=== PATIENT | female | born 1975 | race African-American/Black ===

== ENCOUNTER 2019-02-08 09:23 | Inpatient (IN) | payer OTHER, MEDICAID ==
[2019-02-08] MEDS: ONDANSETRON 4 MG INJ IV ×2 (10:37→13:21)
[2019-02-08] MEDS: SOD CHLORIDE 0.9% 1,000 ML IV (10:37)
[2019-02-08] MEDS ORDERED: morphine 4 MG/ML VIAL (10:41)
[2019-02-08] MEDS: morphine 4 MG/ML VIAL IV (10:43)
[2019-02-08 10:59] LABS: ADD MAN DIFF? NO
[2019-02-08 11:07] LABS: BASOPHIL # 0.1 10^3/ul (0.0-0.1); BASOPHILS % 0.5 % (0.0-2.0); HEMATOCRIT 41.8 % (37.0-47.0); HEMOGLOBIN 13.4 g/dl (12.0-16.0); LYMPHOCYTES # 0.7 10^3/ul (0.8-2.9); LYMPHOCYTES % 6.3 % (15.0-51.0); MEAN CORPUSCULAR HEMOGLOBIN 28.5 pg (29.0-33.0); MEAN CORPUSCULAR HGB CONC 32.1 g/dl (32.0-37.0); MEAN CORPUSCULAR VOLUME 88.7 fl (82.0-101.0); MEAN PLATELET VOLUME 11.6 fl (7.4-10.4); MONOCYTE # 0.2 10^3/ul (0.3-0.9); MONOCYTES % 1.6 % (0.0-11.0); NEUTROPHIL # 9.8 10^3/ul (1.6-7.5); NEUTROPHILS % 91.1 % (39.0-77.0); PLATELET COUNT 251 10^3/UL (140-415); RED BLOOD COUNT 4.71 10^6/ul (4.20-5.40); RED CELL DISTRIBUTION WIDTH 15.2 % (11.5-14.5)
[2019-02-08 11:07] LABS: WHITE BLOOD COUNT 10.7 10^3/ul (4.8-10.8)
[2019-02-08 11:25] LABS: ALANINE AMINOTRANSFERASE 36 IU/L (13-69); ALBUMIN 4.5 g/dl (3.3-4.9); ALBUMIN/GLOBULIN RATIO 1.15; ALKALINE PHOSPHATASE 116 IU/L (42-121); ANION GAP 10 (5-13); ASPARTATE AMINO TRANSFERASE 25 IU/L (15-46); BILIRUBIN,INDIRECT 0.6 mg/dl (0-1.1); BILIRUBIN,TOTAL 0.6 mg/dl (0.2-1.3); BLOOD UREA NITROGEN 13 mg/dl (7-20); CARBON DIOXIDE 28 mmol/L (21-31); CHLORIDE 105 mmol/L (97-110); CREATININE 0.95 mg/dl (0.44-1.00); Estimated GFR > 60 mL/min (>60); GLUCOSE 114 mg/dl (70-220); LIPASE 28 U/L (23-300); POTASSIUM 3.4 mmol/L (3.5-5.1); SODIUM 143 mmol/L (135-144); TOTAL PROTEIN 8.4 g/dl (6.1-8.1)
[2019-02-08] MEDS: AMLODIPINE 10 MG TAB PO (13:58)
[2019-02-08] MEDS: hydrALAzine 20 MG INJ IV (15:58)
[2019-02-08] MEDS: ENALAPRILAT 1.25 MG INJ IV (17:51)
[2019-02-08] MEDS: ASPIRIN 81 MG TAB PO (18:23)
[2019-02-08] MEDS: LORAZEPAM 2 MG INJ IV (18:24)
[2019-02-08 18:49] LABS: TROPONIN-I 0.029 ng/ml (0.000-0.120)
[2019-02-08 18:49] LABS: B-TYPE NATRIURETIC PEPTIDE 6070 PG/ML (0-125)
[2019-02-08] MEDS ORDERED: ONDANSETRON 4 MG INJ IV (19:00)
[2019-02-08] MEDS ORDERED: METOCLOPRAMIDE 10 MG INJ IV (19:00)
[2019-02-08] MEDS ORDERED: NITROGLYCERIN (SL) 0.4 MG TAB SL (19:00)
[2019-02-08] MEDS ORDERED: ACETAMINOPHEN 325 MG TAB PO (19:00)
[2019-02-08] MEDS ORDERED: NACL 0.9% 3 ML SYG IV (19:00)
[2019-02-08] MEDS ORDERED: ALBUTEROL/IPRATROPIUM (NEB) 3 ML AMP HHN (19:00)
[2019-02-08] MEDS ORDERED: LORAZEPAM 2 MG INJ IV (19:00)
[2019-02-08 19:30] LABS: FREE T4 (FREE THYROXINE) 1.05 ng/dl (0.64-1.79)
[2019-02-08] MEDS ORDERED: ONDANSETRON INJ 8 MG in SOD CHLORIDE 0.9% 50 ML IV (19:30)
[2019-02-09 06:50] LABS: ADD MAN DIFF? NO
[2019-02-09 06:54] LABS: BASOPHIL # 0.1 10^3/ul (0.0-0.1); BASOPHILS % 0.5 % (0.0-2.0); EOSINOPHILS % 0.3 % (0.0-7.0); HEMATOCRIT 41.5 % (37.0-47.0); HEMOGLOBIN 13.5 g/dl (12.0-16.0); LYMPHOCYTES # 1.2 10^3/ul (0.8-2.9); LYMPHOCYTES % 9.6 % (15.0-51.0); MEAN CORPUSCULAR HEMOGLOBIN 29.1 pg (29.0-33.0); MEAN CORPUSCULAR HGB CONC 32.5 g/dl (32.0-37.0); MEAN CORPUSCULAR VOLUME 89.4 fl (82.0-101.0); MEAN PLATELET VOLUME 11.8 fl (7.4-10.4); MONOCYTE # 0.7 10^3/ul (0.3-0.9); NEUTROPHIL # 10.9 10^3/ul (1.6-7.5); NEUTROPHILS % 84.3 % (39.0-77.0); PLATELET COUNT 239 10^3/UL (140-415); RED BLOOD COUNT 4.64 10^6/ul (4.20-5.40); RED CELL DISTRIBUTION WIDTH 15.7 % (11.5-14.5)
[2019-02-09 07:20] LABS: ANION GAP 8 (5-13); BLOOD UREA NITROGEN 16 mg/dl (7-20); CALCIUM 9.2 mg/dl (8.4-10.2); CARBON DIOXIDE 26 mmol/L (21-31); CHLORIDE 105 mmol/L (97-110); CREATININE 0.91 mg/dl (0.44-1.00); Estimated GFR > 60 mL/min (>60); GLUCOSE 89 mg/dl (70-220); PHOSPHORUS 3.3 mg/dl (2.5-4.9); POTASSIUM 3.5 mmol/L (3.5-5.1); SODIUM 139 mmol/L (135-144)
[2019-02-09 07:20] LABS: HEMOGLOBIN A1C 5.4 % (0-5.9)
[2019-02-09 07:22] LABS: CHOLESTEROL 168 mg/dl (100-200)
[2019-02-09 07:22] LABS: CHOL/HDL RATIO 3.1 RATIO; HDL CHOLESTEROL 54 mg/dl (34-88); LDL CHOLESTEROL,CALCULATED 96 mg/dl; TRIGLYCERIDES 91 mg/dl (0-149)
[2019-02-09 07:50] LABS: THYROID STIMULATING HORMONE 0.782 MIU/L (0.465-4.680)
[2019-02-09] MEDS: ASPIRIN (EC) 325 MG TAB PO (08:13)
[2019-02-09] MEDS: HYDROCHLOROTHIAZIDE 25 MG TAB PO (08:13)
[2019-02-09] MEDS: FAMOTIDINE 20 MG INJ IV (08:13)
[2019-02-09] MEDS: HYDROCODONE/APAP (5/325) TAB PO ×3 (08:17→23:03)
[2019-02-09] MEDS ORDERED: AMLODIPINE 10 MG TAB PO (09:00)
[2019-02-09] MEDS: hydrALAzine 20 MG INJ IV ×2 (11:43→20:08)
[2019-02-09 12:59] LABS: TROPONIN-I 0.046 ng/ml (0.000-0.120)
[2019-02-09] MEDS: morphine 2 MG INJ IV (13:07)
[2019-02-09 13:55] LABS: ADD UMIC YES; UR ASCORBIC ACID NEGATIVE (NEGATIVE); UR BACTERIA FEW /HPF (NONE SEEN); UR BILIRUBIN (Dip) NEGATIVE (NEGATIVE); UR BLOOD (Dip) 1+ mg/dL (NEGATIVE); UR CLARITY CLOUDY (CLEAR); UR COLOR YELLOW (YELLOW); UR GLUCOSE (Dip) NEGATIVE (NEGATIVE); UR KETONES (Dip) NEGATIVE (NEGATIVE); UR LEUKOCYTE ESTERASE (Dip) 2+ Leu/ul (NEGATIVE); UR MUCUS FEW /HPF (NONE SEEN); UR NITRITE (Dip) NEGATIVE (NEGATIVE); UR RBC 6 /HPF (0-5); UR SPECIFIC GRAVITY (Dip) 1.019 (1.003-1.030); UR SQUAMOUS EPITHELIAL CELL FEW /HPF (FEW); UR TOTAL PROTEIN (Dip) NEGATIVE (NEGATIVE); UR UROBILINOGEN (Dip) NEGATIVE (NEGATIVE); UR WBC 96 /HPF (0-5)
[2019-02-09 14:08] LABS: BARBITURATES Negative (NEGATIVE); BENZODIAZEPINES Negative (NEGATIVE); COCAINE Negative (NEGATIVE)
[2019-02-09 14:29] LABS: AMPHETAMINE/METHAMPHETAMINE POSITIVE (NEGATIVE); CANNABINOIDS Positive (NEGATIVE); OPIATES Positive (NEGATIVE)
[2019-02-09] MEDS: SPIRONOLACTONE 25 MG TAB PO (15:43)
[2019-02-09 18:14] LABS: TROPONIN-I 0.034 ng/ml (0.000-0.120)
[2019-02-10] MEDS: morphine 2 MG INJ IV ×3 (04:38→21:29)
[2019-02-10] MEDS: SPIRONOLACTONE 25 MG TAB PO (05:26)
[2019-02-10 08:17] LABS: ADD MAN DIFF? NO
[2019-02-10] MEDS: FAMOTIDINE 20 MG INJ IV (08:19)
[2019-02-10] MEDS: HYDROCHLOROTHIAZIDE 25 MG TAB PO (08:19)
[2019-02-10] MEDS: ASPIRIN (EC) 325 MG TAB PO (08:19)
[2019-02-10 08:23] LABS: BASOPHIL # 0.1 10^3/ul (0.0-0.1); BASOPHILS % 0.7 % (0.0-2.0); EOSINOPHILS # 0.1 10^3/ul (0.0-0.5); EOSINOPHILS % 1.6 % (0.0-7.0); HEMATOCRIT 40.7 % (37.0-47.0); HEMOGLOBIN 13.5 g/dl (12.0-16.0); LYMPHOCYTES # 1.8 10^3/ul (0.8-2.9); LYMPHOCYTES % 19.9 % (15.0-51.0); MEAN CORPUSCULAR HEMOGLOBIN 29.2 pg (29.0-33.0); MEAN CORPUSCULAR HGB CONC 33.2 g/dl (32.0-37.0); MEAN CORPUSCULAR VOLUME 87.9 fl (82.0-101.0); MEAN PLATELET VOLUME 11.8 fl (7.4-10.4); MONOCYTE # 0.7 10^3/ul (0.3-0.9); NEUTROPHIL # 6.2 10^3/ul (1.6-7.5); NEUTROPHILS % 69.6 % (39.0-77.0); PLATELET COUNT 194 10^3/UL (140-415); RED BLOOD COUNT 4.63 10^6/ul (4.20-5.40); RED CELL DISTRIBUTION WIDTH 15.2 % (11.5-14.5)
[2019-02-10] MEDS: HYDROCODONE/APAP (5/325) TAB PO ×3 (08:29→23:19)
[2019-02-10 08:48] LABS: ANION GAP 7 (5-13); BLOOD UREA NITROGEN 23 mg/dl (7-20); CALCIUM 8.5 mg/dl (8.4-10.2); CARBON DIOXIDE 28 mmol/L (21-31); CHLORIDE 102 mmol/L (97-110); CREATININE 0.97 mg/dl (0.44-1.00); Estimated GFR > 60 mL/min (>60); GLUCOSE 103 mg/dl (70-220); SODIUM 137 mmol/L (135-144)
[2019-02-10 09:03] LABS: POTASSIUM 3.4 mmol/L (3.5-5.1)
[2019-02-10] MEDS: ENALAPRILAT 1.25 MG INJ IV (17:11)
[2019-02-10] MEDS: AZTREONAM 1 GM/NS (PMX) 50 ML IVPB (17:45)
[2019-02-10] MEDS ORDERED: AZTREONAM 1 GM in SOD CHLORIDE 0.9% 100 ML IVPB (18:30)
[2019-02-11] MEDS: DOCUSATE SODIUM 100 MG CAP PO (03:20)
[2019-02-11] MEDS: SPIRONOLACTONE 50 MG TAB PO (05:30)
[2019-02-11] MEDS: morphine 2 MG INJ IV (05:33)
[2019-02-11 07:12] LABS: ADD MAN DIFF? NO
[2019-02-11 07:13] LABS: WHITE BLOOD COUNT 6.9 10^3/ul (4.8-10.8)
[2019-02-11 07:13] LABS: BASOPHIL # 0.1 10^3/ul (0.0-0.1); BASOPHILS % 0.7 % (0.0-2.0); EOSINOPHILS # 0.2 10^3/ul (0.0-0.5); EOSINOPHILS % 2.8 % (0.0-7.0); HEMATOCRIT 39.4 % (37.0-47.0); HEMOGLOBIN 12.6 g/dl (12.0-16.0); LYMPHOCYTES # 1.3 10^3/ul (0.8-2.9); LYMPHOCYTES % 19.3 % (15.0-51.0); MEAN CORPUSCULAR VOLUME 90.8 fl (82.0-101.0); MEAN PLATELET VOLUME 11.8 fl (7.4-10.4); MONOCYTE # 0.6 10^3/ul (0.3-0.9); MONOCYTES % 8.2 % (0.0-11.0); NEUTROPHIL # 4.7 10^3/ul (1.6-7.5); NEUTROPHILS % 68.7 % (39.0-77.0); PLATELET COUNT 206 10^3/UL (140-415); RED BLOOD COUNT 4.34 10^6/ul (4.20-5.40); RED CELL DISTRIBUTION WIDTH 15.1 % (11.5-14.5)
[2019-02-11 07:35] LABS: ANION GAP 7 (5-13); BLOOD UREA NITROGEN 26 mg/dl (7-20); CARBON DIOXIDE 30 mmol/L (21-31); CHLORIDE 100 mmol/L (97-110); CREATININE 0.95 mg/dl (0.44-1.00); Estimated GFR > 60 mL/min (>60); GLUCOSE 101 mg/dl (70-220); POTASSIUM 3.7 mmol/L (3.5-5.1); SODIUM 137 mmol/L (135-144)
[2019-02-11] MEDS: ASPIRIN (EC) 325 MG TAB PO (08:17)
[2019-02-11] MEDS: AZTREONAM 1 GM/NS (PMX) 50 ML IVPB (08:17)
[2019-02-11] MEDS: FAMOTIDINE 20 MG INJ IV (08:17)
[2019-02-11] MEDS: HYDROCHLOROTHIAZIDE 25 MG TAB PO (08:17)
[2019-02-11] MEDS: AMLODIPINE 10 MG TAB PO (12:07)
[2019-02-11] MEDS: TRIMETHOPRIM/SULFAMETHOX (DS) TAB PO ×2 (12:07→20:31)
[2019-02-11] MEDS: LORAZEPAM 2 MG INJ IV ×2 (12:12→22:49)
[2019-02-11] MEDS: HYDROCODONE/APAP (5/325) TAB PO (20:31)
[2019-02-11] MEDS: hydrALAzine 20 MG INJ IV (21:41)
[2019-02-12] MEDS: SPIRONOLACTONE 50 MG TAB PO (05:20)
[2019-02-12 06:47] LABS: ADD MAN DIFF? NO
[2019-02-12 06:55] LABS: BASOPHIL # 0.1 10^3/ul (0.0-0.1); EOSINOPHILS # 0.3 10^3/ul (0.0-0.5); EOSINOPHILS % 3.6 % (0.0-7.0); HEMATOCRIT 38.2 % (37.0-47.0); HEMOGLOBIN 12.4 g/dl (12.0-16.0); LYMPHOCYTES # 1.4 10^3/ul (0.8-2.9); LYMPHOCYTES % 20.3 % (15.0-51.0); MEAN CORPUSCULAR HEMOGLOBIN 29.1 pg (29.0-33.0); MEAN CORPUSCULAR HGB CONC 32.5 g/dl (32.0-37.0); MEAN CORPUSCULAR VOLUME 89.7 fl (82.0-101.0); MEAN PLATELET VOLUME 11.5 fl (7.4-10.4); MONOCYTE # 0.8 10^3/ul (0.3-0.9); MONOCYTES % 11.6 % (0.0-11.0); NEUTROPHIL # 4.4 10^3/ul (1.6-7.5); NEUTROPHILS % 63.2 % (39.0-77.0); PLATELET COUNT 193 10^3/UL (140-415); RED BLOOD COUNT 4.26 10^6/ul (4.20-5.40)
[2019-02-12 07:15] LABS: ANION GAP 8 (5-13); BLOOD UREA NITROGEN 25 mg/dl (7-20); CALCIUM 9.2 mg/dl (8.4-10.2); CARBON DIOXIDE 27 mmol/L (21-31); CHLORIDE 101 mmol/L (97-110); CREATININE 1.07 mg/dl (0.44-1.00); Estimated GFR > 60 mL/min (>60); GLUCOSE 94 mg/dl (70-220); POTASSIUM 3.9 mmol/L (3.5-5.1); SODIUM 136 mmol/L (135-144)
[2019-02-12] MEDS: AMLODIPINE 10 MG TAB PO (09:07)
[2019-02-12] MEDS: HYDROCHLOROTHIAZIDE 25 MG TAB PO (09:07)
[2019-02-12] MEDS: FAMOTIDINE 20 MG TAB PO (09:07)
[2019-02-12] MEDS: ASPIRIN (EC) 325 MG TAB PO (09:08)
[2019-02-12] MEDS: TRIMETHOPRIM/SULFAMETHOX (DS) TAB PO (09:08)
[2019-02-12] MEDS: MAGNESIUM HYDROXIDE 30ML CUP PO (09:47)
[2019-02-12] MEDS: DOCUSATE SODIUM 100 MG CAP PO (09:47)
== END 2019-02-12 15:10 | disposition home or self-care (01) | DRG 305 ==
LOC: E/R 09:23 → TEL 18:51
PROVIDERS: Hospitalist
DX: I16.0 Hypertensive urgency (principal); N39.0 Urinary tract infection, site not specified; I25.10 Atherosclerotic heart disease of native coronary artery without angina pectoris; I25.2 Old myocardial infarction; F17.210 Nicotine dependence, cigarettes, uncomplicated; F12.90 Cannabis use, unspecified, uncomplicated; N18.9 Chronic kidney disease, unspecified; I13.10 Hypertensive heart and chronic kidney disease without heart failure, with stage 1 through stage 4 chronic kidney disease, or unspecified chronic kidney disease; F15.90 Other stimulant use, unspecified, uncomplicated; Z88.0 Allergy status to penicillin; Z90.01 Acquired absence of eye; Z86.73 Personal history of transient ischemic attack (TIA), and cerebral infarction without residual deficits; Z95.5 Presence of coronary angioplasty implant and graft
CPT/HCPCS: 36415; 70450; 71045; 74176; 80048; 80053; 80061; 80307; 81001; 83036; 83690; 83735; 83880; 84100; 84439; 84443; 84484; 84703; 85025; 87086; 92610; 93005; 93306; 96374; 96375; 96376; 99285-25

== ENCOUNTER 2019-05-02 13:36 | Emergency (ER) | payer OTHER ==
[2019-05-02] MEDS: SOD CHLORIDE 0.9% 1,000 ML IV (14:10)
[2019-05-02] MEDS: ONDANSETRON 4 MG INJ IV ×2 (14:11→14:47)
[2019-05-02] MEDS: KETOROLAC 30 MG INJ IV (14:11)
[2019-05-02] MEDS: morphine 4 MG/ML VIAL IV (14:11)
[2019-05-02 14:13] LABS: ADD MAN DIFF? NO
[2019-05-02 14:19] LABS: WHITE BLOOD COUNT 8.1 10^3/ul (4.8-10.8)
[2019-05-02 14:19] LABS: BASOPHIL # 0.1 10^3/ul (0.0-0.1); BASOPHILS % 0.7 % (0.0-2.0); EOSINOPHILS # 0.1 10^3/ul (0.0-0.5); EOSINOPHILS % 0.9 % (0.0-7.0); HEMATOCRIT 39.2 % (37.0-47.0); HEMOGLOBIN 12.7 g/dl (12.0-16.0); LYMPHOCYTES # 1.1 10^3/ul (0.8-2.9); MEAN CORPUSCULAR HEMOGLOBIN 28.5 pg (29.0-33.0); MEAN CORPUSCULAR HGB CONC 32.4 g/dl (32.0-37.0); MEAN CORPUSCULAR VOLUME 88.1 fl (82.0-101.0); MEAN PLATELET VOLUME 10.6 fl (7.4-10.4); MONOCYTE # 0.4 10^3/ul (0.3-0.9); MONOCYTES % 4.7 % (0.0-11.0); NEUTROPHIL # 6.5 10^3/ul (1.6-7.5); NEUTROPHILS % 79.6 % (39.0-77.0); PLATELET COUNT 215 10^3/UL (140-415); RED BLOOD COUNT 4.45 10^6/ul (4.20-5.40); RED CELL DISTRIBUTION WIDTH 15.9 % (11.5-14.5)
[2019-05-02 14:38] LABS: ALANINE AMINOTRANSFERASE 19 IU/L (13-69); ALBUMIN 4.7 g/dl (3.3-4.9); ALBUMIN/GLOBULIN RATIO 1.34; ALKALINE PHOSPHATASE 86 IU/L (42-121); ANION GAP 9 (5-13); ASPARTATE AMINO TRANSFERASE 24 IU/L (15-46); BILIRUBIN,INDIRECT 0.5 mg/dl (0-1.1); BILIRUBIN,TOTAL 0.5 mg/dl (0.2-1.3); BLOOD UREA NITROGEN 8 mg/dl (7-20); CALCIUM 9.6 mg/dl (8.4-10.2); CARBON DIOXIDE 28 mmol/L (21-31); CHLORIDE 103 mmol/L (97-110); CREATININE 0.89 mg/dl (0.44-1.00); Estimated GFR > 60 mL/min (>60); GLUCOSE 120 mg/dl (70-220); POTASSIUM 3.3 mmol/L (3.5-5.1); SODIUM 140 mmol/L (135-144); TOTAL PROTEIN 8.2 g/dl (6.1-8.1)
[2019-05-02] MEDS: NICARDipine HCL 30 MG CAPSULE PO (14:47)
[2019-05-02] MEDS: HYDROmorphONE 1 MG/ML SYG IV (14:48)
[2019-05-02 15:01] LABS: INR 0.97
[2019-05-02 15:02] LABS: PARTIAL THROMBOPLASTIN TIME 25.7 Sec (23.0-35.0)
[2019-05-02 18:20] LABS: ADD UMIC YES; UR ASCORBIC ACID NEGATIVE (NEGATIVE); UR BACTERIA FEW /HPF (NONE SEEN); UR BILIRUBIN (Dip) NEGATIVE (NEGATIVE); UR BLOOD (Dip) 3+ mg/dL (NEGATIVE); UR CLARITY CLEAR (CLEAR); UR COLOR STRAW (YELLOW); UR GLUCOSE (Dip) 1+ mg/dL (NEGATIVE); UR KETONES (Dip) NEGATIVE (NEGATIVE); UR LEUKOCYTE ESTERASE (Dip) 1+ Leu/ul (NEGATIVE); UR MUCUS FEW /HPF (NONE SEEN); UR NITRITE (Dip) NEGATIVE (NEGATIVE); UR RBC 102 /HPF (0-5); UR TOTAL PROTEIN (Dip) NEGATIVE (NEGATIVE); UR UROBILINOGEN (Dip) NEGATIVE (NEGATIVE); UR WBC 37 /HPF (0-5)
== END 2019-05-02 19:53 | disposition home or self-care (01) ==
LOC: E/R 19:53
DX: N20.0 Calculus of kidney (principal); I12.9 Hypertensive chronic kidney disease with stage 1 through stage 4 chronic kidney disease, or unspecified chronic kidney disease; N18.2 Chronic kidney disease, stage 2 (mild); F17.210 Nicotine dependence, cigarettes, uncomplicated; Z98.61 Coronary angioplasty status
CPT/HCPCS: 76775; 80053; 81001; 81025; 85025; 85610; 85730; 87086; 96361; 96374; 96375; 96376; 99285-25